=== PATIENT | male | born 1955 | race Caucasian/White ===

== ENCOUNTER 2021-01-28 18:19 | Emergency (ER) | payer MEDICARE ==
[2021-01-28] MEDS ORDERED: HYDROcodone/Acetaminophen 5/325 mg Tablet ONE (20:22)
== END 2021-01-28 21:21 | disposition home or self-care (01) ==
LOC: CSHERS 18:19
DX: Z43.1 Encounter for attention to gastrostomy (principal)
CPT/HCPCS: 43762; 74018

== ENCOUNTER 2021-04-03 18:21 | Emergency (ER) | payer MEDICARE ==
[2021-04-04 00:50] LABS: #Eosinphils 0.2 10x3/uL (0.0-0.5); #Monocytes 0.6 10x3/uL (0.0-1.1); #Neutrophils 2.7 10x3/uL (1.5-8.4); %Basophils 0.9 % (0.0-2.0); %Eosinophils 3.2 % (0.0-6.0); %Lymphocytes 25.6 % (18.0-47.0); %Monocytes 11.8 % (0.0-10.0); %Neutrophils 58.3 % (40.0-75.0); Hemoglobin 11.2 g/dL (13.5-17.5); Mean Corpuscular HGB CONC 33.2 g/dL (32.0-36.0); Mean Corpuscular Hemoglobin 31.9 pg (27.0-33.0); Mean Platelet Volume 8.9 fl (7.4-10.4); Platelet Count 340 10x3/uL (150-450); RBC Distribution Width 13.3 % (11.5-14.5); Red Blood Cell (RBC) Count 3.51 10x6/uL (4.32-5.72); White Blood Cell (WBC) Count 4.7 10x3/uL (3.5-10.5)
[2021-04-04 01:02] LABS: ALT (SGPT) 23 U/L (8-55); AST (SGOT) 55 U/L (5-34); Albumin 3.9 g/dL (3.4-4.8); Alkaline Phosphatase 84 U/L (40-110); Anion Gap 15 mmol/L (10-20); BUN (Urea Nitrogen) 13 mg/dL (8.4-25.7); Bilirubin, Total 0.9 mg/dL (0.2-1.2); Calc. Creatinine Clearance 0 mL/min (70-130); Calcium 9.1 mg/dL (7.8-10.44); Carbon Dioxide 28 mmol/L (23-31); Chloride 93 mmol/L (98-107); Globulin 4.1 g/dL (2.4-3.5); Glucose 103 mg/dL (80-115); Potassium 3.7 mmol/L (3.5-5.1); Sodium 132 mmol/L (136-145)
== END 2021-04-04 01:29 | disposition home or self-care (01) ==
LOC: CSHERS 18:21
DX: K94.23 Gastrostomy malfunction (principal); F17.290 Nicotine dependence, other tobacco product, uncomplicated
CPT/HCPCS: 80053; 85025; 99282

== ENCOUNTER 2021-04-08 18:14 | Emergency (ER) | payer MEDICARE ==
[2021-04-08] MEDS ORDERED: Morphine 4 MG/ML VIAL ONE ×2 (22:16→23:25)
== END 2021-04-08 23:35 | disposition home or self-care (01) ==
LOC: CSHERS 18:14
DX: K94.23 Gastrostomy malfunction (principal); F17.290 Nicotine dependence, other tobacco product, uncomplicated; Z85.89 Personal history of malignant neoplasm of other organs and systems
CPT/HCPCS: 74018; 96372; J2270

== ENCOUNTER 2021-08-17 20:33 | Inpatient (IN) | payer MEDICARE ==
[2021-08-17] MEDS ORDERED: Cyclobenzaprine 10 MG TAB ONE (21:10)
[2021-08-17] MEDS ORDERED: HYDROcodone/Acetaminophen 5/325 mg Tablet ONE (21:11)
[2021-08-17 21:13] LABS: #Eosinphils 0.2 10x3/uL (0.0-0.5); #Monocytes 0.7 10x3/uL (0.0-1.1); #Neutrophils 6.2 10x3/uL (1.5-8.4); %Basophils 0.2 % (0.0-2.0); %Eosinophils 2.6 % (0.0-6.0); %Lymphocytes 16.9 % (18.0-47.0); %Monocytes 8.4 % (0.0-10.0); %Neutrophils 71.2 % (40.0-75.0); Hemoglobin 10.9 g/dL (13.5-17.5); Mean Corpuscular Hemoglobin 32.4 pg (27.0-33.0); Mean Corpuscular Volume 92.6 fl (81.2-95.1); Mean Platelet Volume 8.5 fl (7.4-10.4); Platelet Count 144 10x3/uL (150-450); RBC Distribution Width 12.4 % (11.5-14.5); Red Blood Cell (RBC) Count 3.36 10x6/uL (4.32-5.72); White Blood Cell (WBC) Count 8.7 10x3/uL (3.5-10.5)
[2021-08-17 21:28] LABS: ALT (SGPT) 25 U/L (8-55); AST (SGOT) 35 U/L (5-34); Albumin 3.2 g/dL (3.4-4.8); Alkaline Phosphatase 75 U/L (40-110); Anion Gap 17 mmol/L (10-20); BUN (Urea Nitrogen) 12 mg/dL (8.4-25.7); Bilirubin, Total 0.7 mg/dL (0.2-1.2); Calc. Creatinine Clearance 0 mL/min (70-130); Calcium 8.9 mg/dL (7.8-10.44); Carbon Dioxide 28 mmol/L (23-31); Chloride 90 mmol/L (98-107); Globulin 3.2 g/dL (2.4-3.5); Glucose 95 mg/dL (80-115); Magnesium 1.3 mg/dL (1.6-2.6); Protein, Total 6.4 g/dL (5.8-8.1); Sodium 132 mmol/L (136-145)
[2021-08-17 21:31] LABS: Potassium 2.5 mmol/L (3.5-5.1)
[2021-08-17] MEDS ORDERED: Morphine 4 MG/ML VIAL ONE (22:02)
[2021-08-17] MEDS ORDERED: Potassium Chloride 20 MEQ TAB ONE (23:06)
[2021-08-17] MEDS ORDERED: NS 0.9% w/ 40 MEQ KCL 1,000 ML IV ONE (23:06)
[2021-08-17] MEDS ORDERED: Magnesium 2 GM/50 ML BAG (IN WATER) ONE (23:06)
[2021-08-17 23:23] LABS: CK (CPK) 38 U/L (30-200)
[2021-08-18 00:18] LABS: SARS-CoV-2 NAA Rapid Test Not Detected (NotDetected)
[2021-08-18] MEDS ORDERED: Senokot S 8.6-50 MG TAB PO PRN (01:43)
[2021-08-18] MEDS ORDERED: Calcium Carbonate 500 MG ChewTAB PO PRN (01:43)
[2021-08-18] MEDS ORDERED: Ondansetron PF 4 MG/2 ML Vial IVP PRN (01:43)
[2021-08-18] MEDS ORDERED: Guaifenesin DM 100-10/5 ML UDCUP PO PRN (01:43)
[2021-08-18] MEDS ORDERED: Acetaminophen 325 MG TAB PO PRN (01:43)
[2021-08-18] MEDS ORDERED: Lactated Ringer's 500 ML IV SCH (01:45)
[2021-08-18] MEDS ORDERED: HYDROcodone/Acetaminophen 5/325 mg Tablet ONE ×2 (02:45→11:45)
[2021-08-18 03:25] VITALS: BMI 18.5
[2021-08-18] MEDS ORDERED: Magnesium 2 GM/50 ML(in water) 2 GM in Premix Bag 1 BAG IVPB SCH (04:00)
[2021-08-18] MEDS: Nicotine 14 MG PATCH TD SCH (04:17)
[2021-08-18 04:18] LABS: Troponin I 0.012 ng/mL (< 0.028)
[2021-08-18] MEDS ORDERED: Magnesium 2 GM/50 ML BAG (IN WATER) ONE (04:27)
[2021-08-18] MEDS: Morphine 2 MG/ML VIAL SLOW IVP PRN ×5 (04:36→21:40)
[2021-08-18] MEDS ORDERED: Morphine 2 MG/ML VIAL ONE ×3 (04:37→13:08)
[2021-08-18] MEDS ORDERED: Multivitamin W/ Minerals 1 TAB ONE (07:59)
[2021-08-18] MEDS ORDERED: Enoxaparin Sodium 40 MG/0.4 ML SYRINGE ONE (07:59)
[2021-08-18] MEDS: Enoxaparin Sodium 40 MG/0.4 ML SYRINGE SC SCH (09:01)
[2021-08-18] MEDS: Calcium Carbonate 600 MG + Vit D TAB PO SCH ×2 (09:01→16:43)
[2021-08-18] MEDS: Multivitamin W/ Minerals 1 TAB PO SCH (09:01)
[2021-08-18] MEDS: Polyethylene Glycol 3350 17 GM Packet PO SCH (09:01)
[2021-08-18 10:01] LABS: #Eosinphils 0.2 10x3/uL (0.0-0.5); #Monocytes 0.5 10x3/uL (0.0-1.1); #Neutrophils 4.5 10x3/uL (1.5-8.4); %Basophils 0.2 % (0.0-2.0); %Eosinophils 3.7 % (0.0-6.0); %Lymphocytes 16.2 % (18.0-47.0); %Monocytes 7.7 % (0.0-10.0); %Neutrophils 71.7 % (40.0-75.0); Hemoglobin 11.6 g/dL (13.5-17.5); Mean Corpuscular HGB CONC 34.8 g/dL (32.0-36.0); Mean Corpuscular Hemoglobin 32.5 pg (27.0-33.0); Mean Corpuscular Volume 93.3 fl (81.2-95.1); Mean Platelet Volume 8.8 fl (7.4-10.4); Platelet Count 140 10x3/uL (150-450); Red Blood Cell (RBC) Count 3.57 10x6/uL (4.32-5.72); White Blood Cell (WBC) Count 6.2 10x3/uL (3.5-10.5)
[2021-08-18 10:29] LABS: Anion Gap 12 mmol/L (10-20); BUN (Urea Nitrogen) 9 mg/dL (8.4-25.7); Calc. Creatinine Clearance 66 mL/min (70-130); Calcium 8.7 mg/dL (7.8-10.44); Carbon Dioxide 28 mmol/L (23-31); Chloride 99 mmol/L (98-107); Glucose 115 mg/dL (80-115); Magnesium 2.4 mg/dL (1.6-2.6); Potassium 4.2 mmol/L (3.5-5.1); Sodium 135 mmol/L (136-145)
[2021-08-18 11:07] LABS: Thyroid Stimulating Hormone 1.2575 uIU/mL (0.35-4.94)
[2021-08-18] MEDS: HYDROcodone/Acetaminophen 5/325 mg Tablet PO PRN ×3 (11:44→20:16)
[2021-08-19] MEDS ORDERED: Metoprolol Tartrate 25 MG TAB PO SCH (00:45)
[2021-08-19] MEDS: Morphine 2 MG/ML VIAL SLOW IVP PRN ×6 (01:00→23:38)
[2021-08-19] MEDS: HYDROcodone/Acetaminophen 5/325 mg Tablet PO PRN ×4 (04:31→21:28)
[2021-08-19] MEDS: Nicotine 14 MG PATCH TD SCH (04:32)
[2021-08-19] MEDS: Calcium Carbonate 600 MG + Vit D TAB PO SCH ×2 (09:16→17:40)
[2021-08-19] MEDS: Multivitamin W/ Minerals 1 TAB PO SCH (09:16)
[2021-08-19] MEDS: Enoxaparin Sodium 40 MG/0.4 ML SYRINGE SC SCH (09:17)
[2021-08-19] MEDS: Polyethylene Glycol 3350 17 GM Packet PO SCH (09:18)
[2021-08-20] MEDS: Morphine 2 MG/ML VIAL SLOW IVP PRN ×4 (03:20→22:03)
[2021-08-20] MEDS: Nicotine 14 MG PATCH TD SCH (03:20)
[2021-08-20] MEDS: HYDROcodone/Acetaminophen 5/325 mg Tablet PO PRN ×2 (08:45→20:48)
[2021-08-20] MEDS: Polyethylene Glycol 3350 17 GM Packet PO SCH ×2 (09:54→10:04)
[2021-08-20] MEDS: Enoxaparin Sodium 40 MG/0.4 ML SYRINGE SC SCH (09:54)
[2021-08-20] MEDS: Multivitamin W/ Minerals 1 TAB PO SCH (09:55)
[2021-08-20] MEDS: Calcium Carbonate 600 MG + Vit D TAB PO SCH ×2 (09:55→17:11)
[2021-08-20] MEDS: Dextrose 5 % And 0.9 % NaCl 1,000 ML IV SCH (17:15)
[2021-08-21] MEDS: HYDROcodone/Acetaminophen 5/325 mg Tablet PO PRN ×4 (00:27→20:31)
[2021-08-21] MEDS: Dextrose 5 % And 0.9 % NaCl 1,000 ML IV SCH ×3 (01:45→18:03)
[2021-08-21] MEDS: Morphine 2 MG/ML VIAL SLOW IVP PRN ×5 (01:45→22:05)
[2021-08-21] MEDS: Nicotine 14 MG PATCH TD SCH (03:11)
[2021-08-21] MEDS: Calcium Carbonate 600 MG + Vit D TAB PO SCH ×2 (13:10→18:05)
[2021-08-21] MEDS: Enoxaparin Sodium 40 MG/0.4 ML SYRINGE SC SCH (13:10)
[2021-08-21] MEDS: Polyethylene Glycol 3350 17 GM Packet PO SCH (13:11)
[2021-08-21] MEDS: Multivitamin W/ Minerals 1 TAB PO SCH (13:11)
[2021-08-22] MEDS: HYDROcodone/Acetaminophen 5/325 mg Tablet PO PRN ×2 (00:27→08:31)
[2021-08-22] MEDS: Morphine 2 MG/ML VIAL SLOW IVP PRN ×4 (02:25→20:04)
[2021-08-22 04:55] LABS: Hemoglobin 10.4 g/dL (13.5-17.5); Mean Corpuscular HGB CONC 34.4 g/dL (32.0-36.0); Mean Corpuscular Hemoglobin 32.3 pg (27.0-33.0); Mean Corpuscular Volume 93.8 fl (81.2-95.1); Platelet Count 139 10x3/uL (150-450); RBC Distribution Width 12.8 % (11.5-14.5); Red Blood Cell (RBC) Count 3.22 10x6/uL (4.32-5.72)
[2021-08-22 05:12] LABS: Anion Gap 12 mmol/L (10-20); BUN (Urea Nitrogen) 7 mg/dL (8.4-25.7); Calc. Creatinine Clearance 77 mL/min (70-130); Calcium 8.8 mg/dL (7.8-10.44); Carbon Dioxide 29 mmol/L (23-31); Chloride 96 mmol/L (98-107); Glucose 84 mg/dL (80-115); Potassium 3.8 mmol/L (3.5-5.1); Sodium 133 mmol/L (136-145)
[2021-08-22 05:19] LABS: MDiff Complete? YES
[2021-08-22 05:20] LABS: Anisocytosis SLIGHT = 6-15 cells (100X) (0-5/hpf); Microcytosis SLIGHT = 6-15 cells (100X) (0-5/hpf); Platelet Morphology Comment Appears Adequate; Polychromasia SLIGHT = 2-3 cells (100X) (0-2/hpf)
[2021-08-22 05:24] LABS: Band 9 % (5-11); Eosinophils 8 % (0-10); Lymphocytes 20 % (21-51); Monocytes 8 % (0-10); Neutrophil 55 % (42-75)
[2021-08-22] MEDS: Nicotine 14 MG PATCH TD SCH (05:40)
[2021-08-22] MEDS: Dextrose 5 % And 0.9 % NaCl 1,000 ML IV SCH (05:40)
[2021-08-22] MEDS ORDERED: Electrolyte Replacement Protocol 1 EACH FS PRN (07:45)
[2021-08-22] MEDS: Polyethylene Glycol 3350 17 GM Packet PO SCH (08:31)
[2021-08-22] MEDS: Calcium Carbonate 600 MG + Vit D TAB PO SCH ×2 (08:31→17:44)
[2021-08-22] MEDS: Ascorbic Acid 500 mg Chewable Tablet PO SCH (08:31)
[2021-08-22] MEDS: Multivitamin W/ Minerals 1 TAB PO SCH (08:31)
[2021-08-22] MEDS: Enoxaparin Sodium 40 MG/0.4 ML SYRINGE SC SCH (08:31)
[2021-08-22 08:37] LABS: Anion Gap 12 mmol/L (10-20); BUN (Urea Nitrogen) 6 mg/dL (8.4-25.7); Calc. Creatinine Clearance 78 mL/min (70-130); Calcium 8.5 mg/dL (7.8-10.44); Carbon Dioxide 30 mmol/L (23-31); Chloride 96 mmol/L (98-107); Glucose 101 mg/dL (80-115); Potassium 3.5 mmol/L (3.5-5.1); Sodium 134 mmol/L (136-145)
[2021-08-22] MEDS ORDERED: Potassium Chloride 20 MEQ TAB PO SCH (09:00)
[2021-08-22] MEDS ORDERED: Ketorolac Tromethamine 30 MG/ML VIAL IVP PRN (09:20)
[2021-08-22] MEDS ORDERED: ELECTROLYTE REPLACEMENT PROTOCOL FS PRN (09:25)
[2021-08-22] MEDS ORDERED: Potassium Chloride 20 MEQ in Premix Bag 1 BAG IVPB SCH (10:00)
[2021-08-22 10:39] LABS: Hemoglobin 9.5 g/dL (13.5-17.5); Platelet Count 125 10x3/uL (150-450)
[2021-08-22 10:51] LABS: Anion Gap 13 mmol/L (10-20); BUN (Urea Nitrogen) 6 mg/dL (8.4-25.7); Calc. Creatinine Clearance 80 mL/min (70-130); Calcium 8.6 mg/dL (7.8-10.44); Carbon Dioxide 28 mmol/L (23-31); Chloride 97 mmol/L (98-107); Glucose 101 mg/dL (80-115); Potassium 4.1 mmol/L (3.5-5.1); Sodium 134 mmol/L (136-145)
[2021-08-22] MEDS: D5 1/2 NS w/40 mEq KCL 1,000 ML IV SCH (13:13)
[2021-08-22] MEDS: Famotidine/PF 20 mg/2ml Vial SLOW IVP SCH (20:05)
[2021-08-23] MEDS: Morphine 2 MG/ML VIAL SLOW IVP PRN ×5 (00:01→22:12)
[2021-08-23] MEDS: D5 1/2 NS w/40 mEq KCL 1,000 ML IV SCH ×2 (01:23→18:33)
[2021-08-23] MEDS: Nicotine 14 MG PATCH TD SCH (04:28)
[2021-08-23 04:53] LABS: Phosphorus 2.2 mg/dL (2.3-4.7)
[2021-08-23 04:57] LABS: Anion Gap 14 mmol/L (10-20); BUN (Urea Nitrogen) 6 mg/dL (8.4-25.7); Calc. Creatinine Clearance 80 mL/min (70-130); Calcium 8.8 mg/dL (7.8-10.44); Carbon Dioxide 27 mmol/L (23-31); Chloride 97 mmol/L (98-107); Glucose 84 mg/dL (80-115); Potassium 4.2 mmol/L (3.5-5.1); Sodium 134 mmol/L (136-145)
[2021-08-23] MEDS: Magnesium 2 GM/50 ML(in water) 2 GM in Premix Bag 1 BAG IVPB SCH ×2 (05:39→06:41)
[2021-08-23] MEDS: Polyethylene Glycol 3350 17 GM Packet PO SCH (09:05)
[2021-08-23] MEDS: Enoxaparin Sodium 40 MG/0.4 ML SYRINGE SC SCH (09:05)
[2021-08-23] MEDS: Ascorbic Acid 500 mg Chewable Tablet PO SCH (09:05)
[2021-08-23] MEDS: Multivitamin W/ Minerals 1 TAB PO SCH (09:06)
[2021-08-23] MEDS: Famotidine/PF 20 mg/2ml Vial SLOW IVP SCH ×2 (09:06→20:36)
[2021-08-23] MEDS: Calcium Carbonate 600 MG + Vit D TAB PO SCH ×2 (09:06→19:02)
[2021-08-24] MEDS: Morphine 2 MG/ML VIAL SLOW IVP PRN ×3 (02:27→10:34)
[2021-08-24] MEDS: Nicotine 14 MG PATCH TD SCH (03:21)
[2021-08-24 04:29] LABS: Magnesium 1.6 mg/dL (1.6-2.6)
[2021-08-24] MEDS ORDERED: Magnesium 2 GM/50 ML(in water) 2 GM in Premix Bag 1 BAG IVPB SCH (05:00)
[2021-08-24] MEDS: D5 1/2 NS w/40 mEq KCL 1,000 ML IV SCH (06:29)
[2021-08-24 08:53] LABS: #Eosinphils 0.2 10x3/uL (0.0-0.5); #Monocytes 0.7 10x3/uL (0.0-1.1); %Basophils 0.3 % (0.0-2.0); %Eosinophils 2.3 % (0.0-6.0); %Lymphocytes 8.6 % (18.0-47.0); %Monocytes 6.6 % (0.0-10.0); %Neutrophils 81.7 % (40.0-75.0); Hemoglobin 10.8 g/dL (13.5-17.5); Mean Corpuscular HGB CONC 33.5 g/dL (32.0-36.0); Mean Corpuscular Hemoglobin 31.8 pg (27.0-33.0); Mean Corpuscular Volume 94.7 fl (81.2-95.1); Platelet Count 207 10x3/uL (150-450); RBC Distribution Width 12.8 % (11.5-14.5); White Blood Cell (WBC) Count 9.8 10x3/uL (3.5-10.5)
[2021-08-24 09:45] LABS: Anion Gap 14 mmol/L (10-20); BUN (Urea Nitrogen) 5 mg/dL (8.4-25.7); Calc. Creatinine Clearance 76 mL/min (70-130); Calcium 9.3 mg/dL (7.8-10.44); Carbon Dioxide 26 mmol/L (23-31); Chloride 97 mmol/L (98-107); Glucose 95 mg/dL (80-115); Potassium 4.9 mmol/L (3.5-5.1); Sodium 132 mmol/L (136-145)
[2021-08-24] MEDS: Ascorbic Acid 500 mg Chewable Tablet PO SCH (10:11)
[2021-08-24] MEDS: Famotidine/PF 20 mg/2ml Vial SLOW IVP SCH (10:11)
[2021-08-24] MEDS: Calcium Carbonate 600 MG + Vit D TAB PO SCH (10:11)
[2021-08-24] MEDS: Enoxaparin Sodium 40 MG/0.4 ML SYRINGE SC SCH (10:11)
[2021-08-24] MEDS: Polyethylene Glycol 3350 17 GM Packet PO SCH (10:12)
[2021-08-24] MEDS: Multivitamin W/ Minerals 1 TAB PO SCH (10:12)
[2021-08-24] MEDS ORDERED: HYDROcodone/Acetaminophen 5/325 mg Tablet PO PRN (12:40)
[2021-08-24 15:29] VITALS: BP 147/81; TEMP 98.6
== END 2021-08-24 15:15 | disposition home or self-care (01) | DRG 552 ==
LOC: CSHERS 20:33 → INTOOBSV 08-18 03:18 → CSHERHOLD 08-18 03:18 → CSHTELE 08-18 15:29 → OBSVTOIN 08-19 13:34
PROVIDERS: ADMIT Student in an Organized Health Care Education/Training Program; ATTEND Family Medicine
DX: S22.070A Wedge compression fracture of T9-T10 vertebra, initial encounter for closed fracture (principal); E44.0 Moderate protein-calorie malnutrition; R64 Cachexia; Z68.1 Body mass index [BMI] 19.9 or less, adult; E87.1 Hypo-osmolality and hyponatremia; E86.0 Dehydration; E87.6 Hypokalemia; E83.42 Hypomagnesemia; N18.2 Chronic kidney disease, stage 2 (mild); D63.8 Anemia in other chronic diseases classified elsewhere; R13.12 Dysphagia, oropharyngeal phase; I95.1 Orthostatic hypotension; Z60.2 Problems related to living alone; Z20.822 Contact with and (suspected) exposure to COVID-19; Z91.14 Patient's other noncompliance with medication regimen; Z85.89 Personal history of malignant neoplasm of other organs and systems; Z92.21 Personal history of antineoplastic chemotherapy; Z92.3 Personal history of irradiation; Z79.899 Other long term (current) drug therapy; Z83.3 Family history of diabetes mellitus; Z82.49 Family history of ischemic heart disease and other diseases of the circulatory system; Z87.891 Personal history of nicotine dependence
CPT/HCPCS: 36415; 71045; 72072; 72100; 72128; 74230; 80048; 80053; 82306; 82550; 83735; 84100; 84443; 84484; 85025; 93005; 96361; 96365; 96366; 96367; 96372; 96375; G0378; J1650; J2270; J3475; J3480; J7042; J7120; S0028; U0002; U0003; U0005